=== PATIENT | female | born 1955 | race African-American/Black ===

== ENCOUNTER 2017-02-07 03:41 | Emergency (ER) | payer MEDICAID ==
[~2017-02-07] VITALS: Ht 170.2 cm; Wt 76.2 kg
[2017-02-07 04:01] VITALS: BP_SYST 152
--- NOTE | 2017-02-07 04:18 | NUR ---
Patient to ER bed 5 to gown for evaluation. Side rails up. Report given to CLYDE GUZMAN.
--- NOTE | 2017-02-07 04:20 | NUR ---
Patient AAO x4, sitting in bed c/o generalized weakness, exhaustion, stress, chillds, nausea and vomiting. Afebrile. Denies shortness of breath. Patient states she is anxious about a work project. No acute distress noted. Will continue to monitor.
--- NOTE | 2017-02-07 04:25 | NUR ---
ER at bedside examining patient.
[2017-02-07] MEDS ORDERED: NACL 0.9% 1,000 ML IV ONE (04:30)
--- NOTE | 2017-02-07 05:15 | NUR ---
# 20 gauge angiocath placed to R AC. Use of asceptic technique. Opsite placed over site. Blood return noted. Two patient identifiers used. Blood for lab drawn from site. Flushed with 10 cc of normal saline. No evidence of infiltration noted. Patient tolerated well.
--- NOTE | 2017-02-07 05:30 | NUR ---
Patient ambulated to the bathroom.
[2017-02-07 05:47] LABS: BASOPHILS % (AUTO) 0.4 % (0.0-2.0); EOSINOPHILS # (AUTO) 0.2 K/uL (0.0-0.4); EOSINOPHILS % (AUTO) 3.5 % (0.0-4.0); HEMATOCRIT 39.6 % (36-48); HEMOGLOBIN 13.1 g/dL (12.0-16.0); LYMPHOCYTES # (AUTO) 1.1 K/uL (1.0-5.5); LYMPHOCYTES % (AUTO) 26.5 % (20.5-51.5); MEAN CORPUSCULAR HEMOGLOBIN 31 pg (27-31); MEAN CORPUSCULAR HGB CONC 33 % (32-36); MEAN CORPUSCULAR VOLUME 94 fL (79.0-98.0); MONOCYTES # (AUTO) 0.5 K/uL (0.0-1.0); MONOCYTES % (AUTO) 12.1 % (1.7-9.3); NEUTROPHILS # (AUTO) 2.5 K/uL (1.8-7.7); NEUTROPHILS % (AUTO) 57.5 % (40.0-70.0); PLATELET COUNT (AUTO) 241 K/uL (130-430); RED BLOOD CELL COUNT(AUTO) 4.21 MIL/uL (4.2-6.2); RED CELL DISTRIBUTION WIDTH 12.1 % (9.0-15.0); WHITE BLOOD COUNT (AUTO) 4.3 K/uL (4.8-10.8)
[2017-02-07 05:55] LABS: ANION GAP 9 (5-15); CALCIUM 9.1 mg/dL (8.4-11.0); CHLORIDE 103 mmol/L (98-107); CREATININE 1.03 mg/dL (0.55-1.30); GLUCOSE 179 mg/dL (70-99); SODIUM SERUM 142 mmol/L (136-145); UREA NITROGEN, BLOOD 15 mg/dL (8-21)
[2017-02-07 05:58] LABS: GFR AFRICAN AMERICAN 70 mL/min (>90)
[2017-02-07 06:03] LABS: ALANINE AMINOTRANSFERASE 28 U/L (12-78); ALBUMIN 3.8 g/dL (3.4-4.8); ASPARTATE AMINOTRANSFERASE 19 U/L (10-37); LIPASE 211 U/L (73-393); TOTAL BILIRUBIN 0.5 mg/dL (0.0-1.0)
[2017-02-07] MEDS ORDERED: POTASSIUM CHLORIDE 20 MEQ/PKT PACKET PO ONE (06:30)
--- NOTE | 2017-02-07 07:10 | NUR ---
ER Dr. Hodgson at bedside explaining results to patient.
--- NOTE | 2017-02-07 07:14 | NUR ---
Pt was given medication, tolerated well. No adverse reaction, will contine to monitor.
[2017-02-07 08:02] VITALS: BP_SYST 134
--- NOTE | 2017-02-07 08:02 | NUR ---
Patient given written and verbal discharge instructions and verbalizes understanding. ER MD discussed with patient the results and treatment provided. Patient in stable condition. ID arm band removed. IV catheter removed intact and dressing applied, no active bleeding. Rx of Ativan given. Patient educated on pain management and to follow up with PMD. Pain Scale 0. Opportunity for questions provided and answered.
== END 2017-02-07 08:02 | disposition home or self-care (01) ==
LOC: SED 03:41
DX: F41.1 Generalized anxiety disorder (principal); K52.9 Noninfective gastroenteritis and colitis, unspecified; Z85.3 Personal history of malignant neoplasm of breast; Z88.0 Allergy status to penicillin; Z86.79 Personal history of other diseases of the circulatory system
CPT/HCPCS: 36415; 80053; 83690; 83880; 84484; 85025; 93005; 96360; 99285; J7030